=== PATIENT | male | born 1935 | race Caucasian/White ===

== ENCOUNTER → 2016-08-13 | Outpatient (CLI) | payer MEDICARE ==
[~2016-08-13] VITALS: Ht 175.3 cm; Wt 122.5 kg
[~2016-08-13] MED LIST: ALBU83IN INH; ALTA1CAP2 PO; BANO25CA PO; BENA25TA9 PO; CALC600T21 PO; CARV12.5 PO; COUM2TAB10 PO; FINA5TAB2 PO; FLOM5CAP PO; FURO40TA2 PO; GABA-279 PO; GABA300C3 PO; GLYCOPYRROLATE INJ 0.2 MG/ML 2 ML VIAL As Ordered ONE; HYDR-3781 PO; LEVE1INJ5 SC; LIDOCAINE 2% INJ 100 MG/5 ML SDV (FOR ANES.) As Ordered ONE; NS 1,000 ML IV SCH; OMEP40CA2 PO; POTA10CA PO; PROPOFOL 200 MG/20 ML VIAL As Ordered ONE; SERT-141 PO; SILD50TA PO; SIMV80TA PO; VITA100037 PO; ZYLO300T4 PO
--- NOTE | 2016-08-13 10:27 | ROOR ---
Patient Name: Mikael Brito Procedure Date: 08/13/2016 10:04 AM Date of : 1935 Age: 80 Room: [facility] Gender: Male Note Status: Finalized Procedure: Upper GI endoscopy + Biopsies Indications: Dysphagia Providers: Hsueyin Herrera MD Referring MD: Beau Gan MD Requesting Provider: Medicines: Monitored Anesthesia Care Complications: No immediate complications. Procedure: Pre-Anesthesia Assessment: - The heart rate, respiratory rate, oxygen saturations, blood pressure, adequacy of pulmonary ventilation, and response to care were monitored throughout the procedure. The Endoscope was introduced through the mouth, and advanced to the second part of duodenum. The upper GI endoscopy was accomplished without difficulty. The patient tolerated the procedure well. Findings: The Z-line was irregular and was found 40 cm from the incisors. Multiple biopsies were obtained with cold forceps for evaluation to rule out Norton's Esophagus randomly at the gastroesophageal junction. A small hiatal hernia was present. Localized mild mucosal changes characterized by nodularity were found in the gastric antrum. Biopsies were taken with a cold forceps for histology. The exam of the duodenum was otherwise normal. Impression: - Z-line irregular, 40 cm from the incisors. - Small hiatal hernia. - Nodular mucosa in the antrum. Biopsied. - Multiple biopsies were obtained at the gastroesophageal junction. - The examination was otherwise normal. Recommendation: - Await pathology results. - Discharge patient to home. - Continue present medications. - Await pathology results. - Telephone GI clinic for pathology results in 1 week. - Return to referring physician. - The findings and recommendations were discussed with the patient's family. Huseyin Herrera MD Huseyin Herrera MD 08/13/2016 10:27:17 AM This report has been signed electronically. Number of Addenda: 0 Note Initiated On: 08/13/2016 10:04 AM Estimated Blood Loss: Estimated blood loss: none.
[2016-08-13 10:45] VITALS: BP 113/67
== END | disposition home or self-care (01) ==
LOC: M OPP 08:58
PROVIDERS: ATTEND Internal Medicine Gastroenterology
DX: K22.8 Other specified diseases of esophagus (principal); K44.9 Diaphragmatic hernia without obstruction or gangrene; K29.70 Gastritis, unspecified, without bleeding; K22.70 Barrett's esophagus without dysplasia; I48.91 Unspecified atrial fibrillation; I10 Essential (primary) hypertension; E78.00 Pure hypercholesterolemia, unspecified; E11.9 Type 2 diabetes mellitus without complications; M19.90 Unspecified osteoarthritis, unspecified site; F33.9 Major depressive disorder, recurrent, unspecified; N40.0 Benign prostatic hyperplasia without lower urinary tract symptoms; E66.9 Obesity, unspecified; I71.2 Thoracic aortic aneurysm, without rupture; R60.9 Edema, unspecified; Z86.79 Personal history of other diseases of the circulatory system; Z97.2 Presence of dental prosthetic device (complete) (partial); Z87.891 Personal history of nicotine dependence; Z79.899 Other long term (current) drug therapy; Z79.01 Long term (current) use of anticoagulants; Z79.891 Long term (current) use of opiate analgesic

== ENCOUNTER → 2017-11-12 | Outpatient (CLI) | payer MEDICARE ==
[2017-11-13 09:49] LABS: HEPATITIS B SURFACE ANTIGEN NEGATIVE (NEGATIVE)
[2017-11-13 11:13] LABS: HIV SCREEN CENTAUR SOURCE NEGATIVE (NEGATIVE)
== END ==
LOC: M LAB 22:12
DX: Z11.3 Encounter for screening for infections with a predominantly sexual mode of transmission (principal)
CPT/HCPCS: 87340

== ENCOUNTER → 2017-11-16 | Outpatient (REF) ==
[2017-11-16 10:16] LABS: HEMATOCRIT 38.1 % (42.0-52.0); HEMOGLOBIN 12.1 g/dl (13.5-17.5); MEAN CORPUSCULAR HEMOGLOBIN 29.4 pg (27.0-33.0); MEAN CORPUSCULAR HGB CONC 31.8 g/dl (32.0-36.5); MEAN CORPUSCULAR VOLUME 92.7 fl (80.0-96.0); PLATELET COUNT, AUTOMATED 332 10^3/uL (150-450); RED BLOOD COUNT 4.11 10^6/uL (4.30-6.10); RED CELL DISTRIBUTION WIDTH 15.4 % (11.5-14.5); WHITE BLOOD COUNT 8.1 10^3/uL (4.0-10.0)
[2017-11-16 10:29] LABS: ANION GAP 6 MEQ/L (8-16); BLOOD UREA NITROGEN 36 MG/DL (7-18); CALCIUM LEVEL 8.9 MG/DL (8.8-10.2); CARBON DIOXIDE LEVEL 36 MEQ/L (21-32); CHLORIDE LEVEL 97 MEQ/L (98-107); CREATININE FOR GFR 1.64 MG/DL (0.70-1.30); GLOMERULAR FILTRATION RATE 43.1 (>35); GLUCOSE, FASTING 183 MG/DL (70-100); NT-PRO BNP 1161 PG/ML (<450); SODIUM LEVEL 139 MEQ/L (136-145)
== END ==
DX: I50.9 Heart failure, unspecified (principal)

== ENCOUNTER 2021-03-09 12:26 | Emergency (ER) | payer MEDICARE ==
[~2021-03-09 12:26] MED LIST changes: -BANO25CA PO; +BENA25TA10 PO; -BENA25TA9 PO; -CALC600T21 PO; +CALC600T60 PO; -COUM2TAB10 PO; +COUM2TAB22 PO; +DIPH-319 PO; +FLOM0.4C39 PO; -FLOM5CAP PO; +GABA-1171 PO; -GABA-279 PO; +GABA-282 PO; -GABA300C3 PO; -GLYCOPYRROLATE INJ 0.2 MG/ML 2 ML VIAL As Ordered ONE; -HYDR-3781 PO; +HYDR2.5T34 PO; +KLOR10TA76 PO; -LIDOCAINE 2% INJ 100 MG/5 ML SDV (FOR ANES.) As Ordered ONE; -NS 1,000 ML IV SCH; -OMEP40CA2 PO; +OMEP40CA4 PO; -POTA10CA PO; -PROPOFOL 200 MG/20 ML VIAL As Ordered ONE; -SIMV80TA PO; +SIMV80TA13 PO; -VITA100037 PO; +VITA100067 PO; -ZYLO300T4 PO; +ZYLO300T6 PO
[2021-03-09 16:00] VITALS: BP 144/65
== END 2021-03-09 16:00 | disposition home or self-care (01) ==
LOC: M ED 12:26 → EDBD 12:26 → M ED 16:00
DX: F43.0 Acute stress reaction (principal); R45.6 Violent behavior; E11.9 Type 2 diabetes mellitus without complications; E78.5 Hyperlipidemia, unspecified; G47.33 Obstructive sleep apnea (adult) (pediatric); Z79.4 Long term (current) use of insulin